=== PATIENT | male | born 1950 | race Caucasian/White ===

== ENCOUNTER 2018-10-20 20:40 | Emergency (ER) | payer OTHER ==
[~2018-10-20] VITALS: Ht 175.3 cm; Wt 102.1 kg
[2018-10-20] MEDS ORDERED: LISINOPRIL-HCT1 EAC1 PO (21:14)
== END 2018-10-20 22:17 | disposition home or self-care (01) ==
LOC: ED 20:40
DX: H43.812 Vitreous degeneration, left eye (principal); I10 Essential (primary) hypertension; Z79.899 Other long term (current) drug therapy
CPT/HCPCS: 99283

== ENCOUNTER 2025-01-06 05:30 | Day surgery (SDC) | payer OTHER ==
[2024-12-26 10:34] VITALS: BP 123/79
[~2025-01-06] VITALS: Ht 175.3 cm; Wt 88.6 kg
[~2025-01-06 05:30] MED LIST: DAILY VALUE1 EACH PO; FINASTERIDE5 MG PO; LACTATED RINGER'S 1,000 ML IV SCH; LIDOCAINE30 G1 TOP; LISINOPRIL-HCT1 EAC1 PO; MAGNESIUM250 M1 PO; MELATONIN5 M2 PO; METFORMIN HCL500 MG PO; NEURONTIN300 MG PO; OMEGA-31000 MG PO; ROSUVASTATIN CA20 MG PO; TRAZODONE HCL50 MG PO; TRIAMTERENE-HC1 EAC3 PO; VIAGRA50 MG PO; VITAMIN D350 MCG PO; VITAMIN E400 UNI1 PO; WELLBUTRIN SR150 MG PO; ZESTRIL20 MG PO; [UNRECOGNIZED DRUG - OTHER] PO
[2025-01-06] MEDS ORDERED: Ropivacaine HCl 20 MG/10 ML AMP ONE (06:00)
[2025-01-06 06:21] VITALS: BP 109/91
[2025-01-06] MEDS ORDERED: DEXAMETHASONE SOD PHOS 4 MG/ML VIAL ONE ×2 (06:25→06:28)
[2025-01-06] MEDS ORDERED: propofoL 200 MG/20 ML VIAL ONE (06:25)
[2025-01-06] MEDS ORDERED: Ropivacaine HCl 0.5% 30 ML VIAL ONE (06:25)
[2025-01-06] MEDS ORDERED: dexmedeTOMIDine HCl 200 MCG/2 ML VIAL ONE (06:25)
[2025-01-06] MEDS ORDERED: SODIUM CHLORIDE 0.9% 40 ML IV ONE (06:25)
[2025-01-06] MEDS ORDERED: fentaNYL citrate 100 MCG/2 ML VIAL ONE (06:25)
[2025-01-06] MEDS ORDERED: LIDOCAINE HCL 2% 5 ML SDV ONE (06:25)
[2025-01-06] MEDS ORDERED: MIDAZOLAM HCL 2 MG/2 ML VIAL ONE (06:25)
[2025-01-06] MEDS ORDERED: INTRA-ARTICULAR ANALGESIC INJECTION XX SCH (07:00)
[2025-01-06] MEDS ORDERED: IBLOOD GLUCOSE TEST STRIP 1 EA TEST VI PRN (07:00)
[2025-01-06] MEDS ORDERED: TRANEXAMIC ACID IN NACL,ISO-OS 1,000 MG/100 ML PIGGYBACK IV SCH ×3 (07:00→10:17)
[2025-01-06] MEDS ORDERED: OXYCODONE HCL 5 MG TAB PO SCH (07:00)
[2025-01-06] MEDS ORDERED: GABAPENTIN 600 MG TAB PO SCH (07:00)
[2025-01-06] MEDS ORDERED: LIDOCAINE HCL 1% 5 ML SDV INJ ONE (07:00)
[2025-01-06] MEDS ORDERED: ROPIVACAINE IN 0.9% SOD CHL/PF 545 ML ELS.PMP.HR IRRIGATION SCH (07:00)
[2025-01-06] MEDS ORDERED: PANTOPRAZOLE SODIUM 40 MG TABEC PO SCH (07:00)
[2025-01-06] MEDS ORDERED: ondansetron HCL 4 MG TAB PO SCH (07:00)
[2025-01-06] MEDS ORDERED: TAMSULOSIN HCL 0.4 MG CAP PO SCH (07:00)
[2025-01-06] MEDS ORDERED: CEFAZOLIN SODIUM 2 GM/20 ML SYR IV SCH ×2 (07:00→15:00)
[2025-01-06] MEDS ORDERED: OXYCODONE HCL 5 MG TAB PO PRN (07:30)
[2025-01-06] MEDS ORDERED: KETOROLAC TROMETHAMINE 30 MG/ML VIAL IV PRN (07:30)
--- NOTE | 2025-01-06 07:44 | NUR ---
PT NOT AVAILABLE FOR VISIT. PROVIDED PRAYER.
[2025-01-06] MEDS ORDERED: ePHEDrine sulfate 50 MG/ML AMP ONE (07:47)
[2025-01-06] MEDS ORDERED: PHENYLEPHRINE HCL 10 MG/ML VIAL ONE (08:10)
[2025-01-06] MEDS ORDERED: ondansetron HCL 4 MG/2 ML VIAL ONE (08:39)
[2025-01-06] MEDS ORDERED: CEFUROXIME250 MG PO (08:44)
[2025-01-06] MEDS ORDERED: CELECOXIB200 MG PO (08:44)
[2025-01-06] MEDS ORDERED: SENNA LAX8.6 MG PO (08:45)
[2025-01-06] MEDS ORDERED: OXYCODONE HCL5 MG PO (08:45)
[2025-01-06] MEDS ORDERED: GABAPENTIN300 MG PO (08:45)
--- NOTE | 2025-01-06 09:31 | NUR ---
01/06/25 0931 Lacie Nguyen 0856 PT TO PACU ALERT AND AWAKE DENIES PAIN AND NAUSEA.
[2025-01-06 09:34] VITALS: BP 112/61
--- NOTE | 2025-01-06 09:45 | NUR ---
0930-PT BACK TO ROOM FROM PACU ON RA. RECEIVED REPORT FROM MONSE NAJERA. PT IS AWAKE. RESP EVEN AND UNLABORED. DENIES PAIN AND NAUSEA. CRYO CUFF IN PLACE AND RUNNING. ON-Q PUMP SET AT 4. PT EATING PUDDING AND CRACKERS. TAKING SIPS OF WATER. AT BEDSIDE. NO OTHER NEEDS AT THIS TIME. CALL LIGHT WITHIN REACH.
[2025-01-06 10:30] VITALS: BP 119/59
--- NOTE | 2025-01-06 10:34 | NUR ---
PT LAYING IN BED AWAKE. RESP EVEN AND UNLABORED. DENIES PAIN AND NAUSEA. CRYO CUFF IN PLACE AND RUNNING. ON-Q PUMP SET AT 4. PT DRINKING WATER. NO OTHER NEEDS AT THIS TIME. CALL LIGHT WITHIN REACH.
[2025-01-06 11:39] VITALS: BP 123/62
--- NOTE | 2025-01-06 11:42 | NUR ---
PT LAYING IN BED AWAKE. RESP EVEN AND UNLABORED. DENIES PAIN AND NAUSEA. SPINAL HAS RESOLVED. CRYO CUFF IN PLACE AND RUNNING. ON-Q PUMP SET AT 4. PT IS TAKING SIPS OF WATER. NO OTHER NEEDS AT THIS TIME. ORDERED LUNCH. CALL LIGHT WITHIN REACH.
[2025-01-06 13:15] VITALS: BP 123/62
--- NOTE | 2025-01-06 13:17 | NUR ---
1255-PT BACK TO DAY SURGERY FROM PHYSICAL THERAPY. 1300-PT VOIDS 100ML OF YELLOW URINE. 1305-PT AMBULATES WITH WALKER AND 1 RN ASSIST BACK TO ROOM. 1310-PT LAYING IN BED. RESP EVEN AND UNLABORED. RATES PAIN 2/10. DENIES NAUSEA. PT EATING LUNCH. CRYO CUFF IN PLACE AND RUNNING. ON-Q PUMP SET AT 4. NO OTHER NEEDS AT THIS TIME. AT BEDSIDE. CALL LIGHT WITHIN REACH.
[2025-01-06] MEDS ORDERED: GABAPENTIN 300 MG CAP PO SCH (15:00)
--- NOTE | 2025-01-06 15:12 | NUR ---
1345-PT READY TO GO HOME. PT WILL GET DRESSED WITH THE HELP OF HIS . CALL LIGHT WITHIN REACH.
--- NOTE | 2025-01-06 15:14 | NUR ---
1355-PT AMBULATES WITH WALKER TO REST ROOM WT 1 RN ASSIST. GAIT UNSTEADY BUT TOLERATED WELL. 1415-WENT OVER DISCHARGE INSTRUCTIONS WITH PT AND . WENT OVER POSTOP MEDCIATIONS. ALL QUESTIONS ANSWERED. PHONE CALL TO DR DELACRUZ. VO FOR ASA 325MG BID FOR 30 DAYS. THIS WAS WROTE IN PT'S DISCHARGE INSTRUCTIONS. 1425-PT AMBULATES WITH WALKER TO WHEELCHAIR. RIDE PROVIDED TO FRONT OF HOSPITAL WHERE WAS WAITING WITH THE CAR.
[2025-01-06] MEDS ORDERED: SENNOSIDES 1 TAB PO SCH (21:00)
--- NOTE | 2025-01-07 07:00 | OR ---
[facility] [address] [place], [place] [address] Signed DATE OF OPERATION: 01/06/2025 SURGEON: Kaity Nguyen MD PREOPERATIVE DIAGNOSIS: Severe degenerative joint disease, right knee. POSTOPERATIVE DIAGNOSIS: Severe degenerative joint disease, right knee. PROCEDURE PERFORMED: Right total knee arthroplasty with Edward. LOG YARD DERRICK OPERATOR: Mary Lou Knox PA-C. Mary Lou was present and critical for all portions of procedure. ANESTHESIA: Spinal. BLOOD LOSS: 175 mL. TOURNIQUET TIME: Zero. IMPLANTS: Giuliana Triathlon size 5, 10 mm polyethylene and 35 mm patella. BRIEF HISTORY: Michael is a 74-year-old gentleman with severe daxn-zi-vasc arthritis in his right knee. Nonoperative treatment has been unsuccessful in improving his situation. The risks and benefits of operative treatment were discussed with him and he elected to proceed. DESCRIPTION OF PROCEDURE: Once consent was obtained, he was taken to the operating room. After adequate anesthesia, he was placed on the operating room table. All downside pressure points were well padded. The right hip bump was placed. The leg was then prepped and draped in a standard sterile fashion. The knee was approached through a standard anterior midline incision, carried through the skin and subcutaneous tissue. Skin flaps were Electronically Signed By: KAITY NGUYEN MD 01/07/25 0700 PATIENT NAME: ADENIKE CARMEN OPERATIVE REPORT DATE OF : 46 REPORT #: [id number] PHYSICIAN: KAITY NGUYEN MD PCP: BRIE ALDRICH MD REPORT IS CONFIDENTIAL AND NOT TO BE RELEASED WITHOUT AUTHORIZATION [facility] [address] [place], [place] [address] Signed developed medially and laterally. The midvastus arthrotomy was performed and the infrapatellar fat pad was excised. The MCL was elevated as a sleeve around the posteromedial corner. Anterior horns of the menisci were transected as we went. ACL was transected. PCL was found to be intact. The computer navigation arrays were then placed in the distal femur and proximal tibia. The leg was then registered with computer, followed by the fine anatomic points of the knee. The varus and valgus testing was undertaken. Slight adjustments were made to the prosthesis alignment on the computer. The robot was then brought in. The 4 straight cuts and 2 angled cuts were made with care to protect the MCL and patellar tendon. The bony remnants were removed as were any remaining osteophytes. Posterior osteophytes were removed off the femur. No release was performed. The trials were then positioned. The knee was taken from 0 to 130 degrees with excellent stability throughout. The patella was noted to track well. The patella was cut sized and drilled for a 35 mm patella. The distal femoral drill holes were completed and the proximal tibia was completed using the keel punch followed by the drill holes. The components were obtained. The tibia was impacted into position until it was seated and flushed. The polyethylene was snapped into position and the femur was impacted. The knee was extended and loaded. Patella was clamped into position until again it was seated and flushed. Again, patellar tracking was assessed and found to be good. The knee was then irrigated with one bottle of Surgiphor followed by normal saline. The periarticular soft tissues were injected with 80 mL of ropivacaine and Toradol mixture. The On-Q pain pump was positioned in the adductor canal from the suprapatellar pouch. The arthrotomy was then closed using a combination of #2 FiberWire and #2 Stratafix, subcutaneous tissue with 0 Stratafix and the skin with 3-0 Stratafix. The skin was sealed with LiquiBand and Steri-Strips and dressed with Acticoat-7 dressing, ABD, and Samuel wrap. He tolerated the procedure well. All sponge, needle, and instrument counts were correct. Kaity Nguyen MD BA/MODL /[id number] Electronically Signed By: KAITY NGUYEN MD 01/07/25 0700 PATIENT NAME: ADENIKE CARMEN OPERATIVE REPORT DATE OF : 46 REPORT #: [id number] PHYSICIAN: KAITY NGUYEN MD PCP: BRIE ALDRICH MD REPORT IS CONFIDENTIAL AND NOT TO BE RELEASED WITHOUT AUTHORIZATION [facility] [address] [place], [place] [address] Signed Copies: ~ Electronically Signed By: KAITY NGUYEN MD 01/07/25 0700 PATIENT NAME: ADENIKE CARMEN AMI OPERATIVE REPORT DATE OF : 46 REPORT #: [id number] PHYSICIAN: KAITY NGUYEN MD PCP: BRIE ALDRICH MD REPORT IS CONFIDENTIAL AND NOT TO BE RELEASED WITHOUT AUTHORIZATION
[2025-01-07] MEDS ORDERED: CELECOXIB 200 MG CAP PO SCH (08:00)
[2025-01-07] MEDS ORDERED: cefuroxime axetiL 250 MG TAB PO SCH (09:00)
== END 2025-01-06 14:25 | disposition home or self-care (01) ==
LOC: DS 05:30
PROVIDERS: ATTEND Specialist
PROC: 0SRC0JA Replacement of Right Knee Joint with Synthetic Substitute, Uncemented, Open Approach (ICD-10-PCS; principal; 2025-01-06 07:40)
DX: M17.11 Unilateral primary osteoarthritis, right knee (principal); G89.18 Other acute postprocedural pain; E11.9 Type 2 diabetes mellitus without complications; I10 Essential (primary) hypertension; Z79.899 Other long term (current) drug therapy
CPT/HCPCS: 01402; 64447; 64450; 64454; 73560; 76942; 97161; 97530; A9270; C1713; C1776; J0690; J1100; J2003; J2250; J2371; J2405; J2704; J2795; J3010; J7121; J7999